=== PATIENT | female | born 1965 ===

== ENCOUNTER 2016-09-14 10:40 | Day surgery (SDC) | payer OTHER ==
--- NOTE | 2016-09-14 00:43 | GHP ---
[f rep st] PREOP HISTORY AND PHYSICAL DATE OF ADMISSION: 09/14/2016 The patient is slated for surgery on 09/14/2016, on the gynecology service. HISTORY OF PRESENT ILLNESS: The patient is a 50-year-old G3, P2, A1, who has had perimenopausal ble eding with thickened endometrium and has been advised to proceed with a hysteroscopy and D and C for thorough evaluation. The patient had an endometrial biopsy in May 2016, with findings suggestive of a benign polyp and inactive proliferative endometrium. The patient has tried progesterone for w ithdrawal bleed and did not have any response. The patient has done 2 rounds of progesterone with n o bleed. The patient was on oral contraceptives until December 2013. When she discontinued this, she was hav ing extremely heavy menstrual cycles with significant dysmenorrhea. The patient was initiated on a progesterone management daily in March 2014, at which time the bleeding stopped. The patient was also using an estrogen cream vaginally. The patient totally discontinued the progesterone in 2015, but has not had any withdrawal bleeding. She had 1 day of bleeding in February 2016, and a lso 3 episodes of spotting in April. An ultrasound was performed in April that revealed the uterus 9 x 5 x 6 cm with an endometrial thickness of 1 cm. The patient has a large posterior cervical fibr oid, 3 x 3 x 3 cm. There were also 2 small uterine fibroids, less than 2 cm. One lies posteriorly and one is fundally subserosal. Bilaterally, the ovaries had simple cysts less than 3 cm, in April. The patient has been advised as to the risks and benefits of a hysteroscopy and morcellation versu s D and C and has signed a consent form. PAST MEDICAL HISTORY: The patient has aortic insufficiency. She is seen by Dr. Orantes, who has h ad a stress test as well as an echocardiogram in 2016, that are stable. The patient has been advise d she no longer needs dental prophylactic antibiotics. The patient has an arrhythmia with frequent PVCs often daily. The patient has had hypothyroidism for approximately 10 years but discontinued he r medicines in December 2015, and was evaluated due to fatigue, and her TSH was elevated. The patie nt has restarted her thyroid medicine, and the symptoms have improved and her TSH is normalized. Hi story of insomnia for 18 years. The patient has been on multiple types of therapies and discontinue d her Lunesta also in December 2015. She has also restarted that because insomnia and acne have rec ently been quite a problem. History of MTHFR homozygous [id number]. Patient with history of depression, and she was on Wellbutrin for 8 years. She was off in December 2015. The patient recen tly had evaluation by Endocrinology and feels she has higher androgen levels leading to increased ac ne and insomnia. The patient has recently been started on finasteride 2.5 mg a day. 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 Chronically slow GI system and uses senna with magnesium. PAST SURGICAL HISTORY: Gallbladder removed in 2000, foot surgery in 1995, sinus surgery. PAST OBSTETRIC HISTORY: In 1980, a termination in 1st trimester. In 1997, a vaginal in [facility]. In 2000, a vaginal in [place]. The patient has 2 healthy boys. ALLERGIES: Only to tricyclics. CURRENT MEDICATIONS: Synthroid 50 mcg a day, iron supplement daily, Lunesta 3 mg to 6 mg at night, finasteride 2.5 mg a day, vitamin D supplement, and the Natural Cortisol Wing Coverer. SOCIAL HISTORY: The patient is an assistant county attorney, lives with her and her 2 boys. She is a former smoker. Denies any alcohol or drug use. PHYSICAL EXAMINATION: GENERAL: At the time of preop, the patient is a well-developed, well-nourish ed white female, in no physical distress. VITAL SIGNS: The patient's blood pressure is 98/62, weig ht 146 pounds, height 69 inches. Clinically afebrile. RESPIRATORY: The patient's lungs are clear to auscultation bilaterally. CARDIOVASCULAR: Regular rate and rhythm. ABDOMEN: Soft and nontende r. PELVIC: Exam was performed when the endometrial biopsy was done, and there was an obvious large 3 cm posterior cervical fibroid pushing into the endocervical canal. With gentle traction on the a nterior lip, the cervix was easily sounded to 10 cm. The uterus is mobile and nontender. No adnexa l masses. EXTREMITIES: Nontender with no edema. RECENT LABORATORY EVALUATION: In April, showed normal thyroid functions. In February, FSH was 21 an d estradiol 75. Vitamin D level was 34. Recent checks have not identified [place] syndrome. ASSESSMENT: Dysfunctional uterine bleeding with thickened endometrium in the perimenopause period. History of hyperandrogenism, chronic insomnia. Hypothyroidism. History of depression. PLAN: Will proceed with hysteroscopy and morcellation of the uterine lining with possible D and C. Risks and benefits have been discussed and consent form signed. The patient will receive preoperat guillermo antibiotics and proceed with hysteroscopy on 09/14/2016. /[id number]/MODL
[~2016-09-14 10:40] MED LIST: SILVER NITRATE APPLICATOR 1 APPL TP ONE
[2016-09-14] MEDS ORDERED: LR 1,000 ML IV ONE (11:13)
[2016-09-14] MEDS ORDERED: LIDOCAINE 1% 2 ML INJ ID PRN (11:13)
[2016-09-14] MEDS ORDERED: MIDAZOLAM 2 MG/2 ML VIAL IVP ONE (12:03)
--- NOTE | 2016-09-14 12:05 | PDANEPAE ---
ANE History of Present Illness metrorrhagia ANE Past Medical History - Cardiovascular History Hx Hypertension: No Hx Arrhythmias: Yes Hx Chest Pain: No Hx Coronary Artery / Peripheral Vascular Disease: No Hx CHF / Valvular Disease: No Hx Palpitations: No Cardiovascular History Comment: leaky heart valve from aortic insuff. "bit of irregular heartbeat". seen at [facility] - Pulmonary History Hx COPD: No Hx Asthma/Reactive Airway Disease: No Hx Recent Upper Respiratory Infection: No Hx Oxygen in Use at Home: No Hx Sleep Apnea: No Sleep Apnea Screening Result - Last Documented: Negative - Neurologic History Hx Cerebrovascular Accident: No Hx Seizures: No Hx Dementia: No - Endocrine History Hx Diabetes: No Endocrine History Comment: hypothyroidism - Renal History Hx Renal Disorders: No - Liver History Hx Hepatic Disorders: No - Neurological & Psychiatric Hx Hx Neurological and Psychiatric Disorders: No - Cancer History Hx Cancer: No - Congenital Disorder History Hx Congenital Disorders: No - GI History Hx Gastrointestinal Disorders: No - Other Health History Other Health History: none - Chronic Pain History Chronic Pain: No - Surgical History Prior Surgeries: left foot neuroma removed. wisdom teeth. sasha. deviated septum repair and sinus surgery ANE Review of Systems - Exercise capacity METS (RN): 4 METS ANE Patient History - Allergies Allergies/Adverse Reactions: No Known Allergies Allergy (Verified 07/20/16 14:15) - Home Medications Home Medications: Herbals/Supplements -Info Only 07/20/16 [Last Taken 09/07/16] IBUPROFEN 07/20/16 [Last Taken 09/07/16] Synthroid 07/20/16 [Last Taken 09/14/16 09:00] Finasteride 09/12/16 [Last Taken 09/14/16 09:00] Lunesta PRN 09/12/16 [Last Taken 09/13/16 23:30] - NPO status NPO Since - Liquids (Date): 09/13/16 NPO Since - Liquids (Time): 08:50 NPO Since - Solids (Date): 09/13/16 NPO Since - Solids (Time): 20:30 - Smoking Hx Smoking Status: Former smoker - Family Anes Hx Family Hx Anesthesia Complications: none ANE Labs/Vital Signs - Vital Signs Blood Pressure: 117/65 Heart Rate: 73 Respiratory Rate: 16 O2 Sat (%): 94 Height: 175.26 cm Weight: 66.678 kg ANE Physical Exam - Airway Neck exam: FROM Mallampati Score: Class 1 Mouth exam: normal dental/mouth exam - Pulmonary Pulmonary: no respiratory distress - Cardiovascular Cardiovascular: regular rate and rhythym - ASA Status ASA Status: I ANE Anesthesia Plan Anesthesia Plan: GA w LMA
[2016-09-14] MEDS ORDERED: PROPOFOL 200 MG/20 ML VIAL ONE ×2 (12:38)
[2016-09-14] MEDS ORDERED: fentaNYL 100 MCG/2 ML INJ ONE ×2 (12:38→13:41)
[2016-09-14] MEDS ORDERED: NALOXONE HCL 0.4 MG/ML INJ IVP PRN (12:46)
[2016-09-14] MEDS ORDERED: HYDROmorphONE/DILAUDID 1 MG/ML SYR IVP PRN (12:46)
[2016-09-14] MEDS ORDERED: ONDANSETRON 4 MG/2 ML VIAL ONE (13:17)
[2016-09-14] MEDS ORDERED: DEXAMETHASONE 4 MG/ML VIAL ONE (13:17)
[2016-09-14] MEDS ORDERED: KETOROLAC 30 MG/1 ML SDV ONE (13:17)
--- NOTE | 2016-09-14 13:37 | POSTOPPROG ---
Post Op Note Date of Operation: 09/14/16 Surgeon: Bekah Wilder Anesthesiologist: MD Berto Anesthesia: LMA Pre-op Diagnosis: Thickened endometrium, DUB Post-op Diagnosis: same Indication: 50 y/o with 10 mm endometrial lining with no w/d bleed with P4, E2 level75 Procedure: hysteroscopy with D&C Findings: large cervical fibroid - 3-4 cm on post lip, dilated easily to 7, thin lini Inf/Abcess present in the surg proc area at time of surgery?: No Depth: Organ Space EBL: Minimal Complications: none Specimen(s): endometrial currettings
[2016-09-14] MEDS: fentaNYL 100 MCG/2 ML INJ IVP PRN ×2 (13:42→14:10)
[2016-09-14 14:27] VITALS: RESP 13
[2016-09-14 15:55] VITALS: BP 128/66; PULSE 44; TEMP 97.9; O2SAT 16
== END 2016-09-14 14:54 | disposition home or self-care (01) ==
LOC: FSGY 10:40
PROVIDERS: ATTEND Obstetrics & Gynecology
PROC: 0UDB8ZX Extraction of Endometrium, Via Natural or Artificial Opening Endoscopic, Diagnostic (ICD-10-PCS; principal; 2016-09-14 12:00)
DX: N93.8 Other specified abnormal uterine and vaginal bleeding (principal); D25.9 Leiomyoma of uterus, unspecified; R93.8 Abnormal findings on diagnostic imaging of other specified body structures; I35.1 Nonrheumatic aortic (valve) insufficiency; E03.9 Hypothyroidism, unspecified; G47.00 Insomnia, unspecified; L70.9 Acne, unspecified; F32.9 Major depressive disorder, single episode, unspecified
CPT/HCPCS: J1100; J1885; J2250; J2405; J2704; J3010

== ENCOUNTER → 2016-12-22 | Outpatient (CLI) | payer OTHER | LOC: FIMAGING 09:39 | PROVIDERS: ATTEND Obstetrics & Gynecology | DX: Z12.31 Encounter for screening mammogram for malignant neoplasm of breast (principal) | CPT/HCPCS: G0202 ==

== ENCOUNTER → 2017-06-07 | Outpatient (CLI) | payer OTHER ==
--- NOTE | 2017-06-07 16:02 | CPEEG ---
[f rep st] ELECTROENCEPHALOGRAM DATE OF STUDY: 06/07/2017 INTERPRETATION: This 4-hour video EEG recording is normal. There were no potentially epileptogenic abnormalities present in the awake or sleep recordings. During the video EEG monitoring session, the patient did not have any clinical events. REPORT: This 4-hour video EEG contains 10 Hz alpha activity to the posterior head regions. The background activity was normal and symmetric. There was no abnormal activation at rest during photic stimulation or hyperventilation. The patient became drowsy and fell into sustained sleep during the study. There was no abnormal activation with drowsiness, sleep, or during times of arousal. The patient denied any clinical events during the video EEG monitoring session. /[id number]/MODL MTDD
== END ==
LOC: FCPNEURO 07:51
PROVIDERS: ATTEND Psychiatry & Neurology Neurology
DX: G47.00 Insomnia, unspecified (principal); F43.10 Post-traumatic stress disorder, unspecified

== ENCOUNTER → 2017-12-10 | Outpatient (CLI) | payer OTHER | LOC: FIMAGING 14:15 | PROVIDERS: ATTEND Obstetrics & Gynecology | DX: Z13.820 Encounter for screening for osteoporosis (principal); M85.89 Other specified disorders of bone density and structure, multiple sites ==

== ENCOUNTER → 2018-04-01 | Outpatient (CLI) | payer OTHER | LOC: FIMAGING 16:04 | PROVIDERS: ATTEND Obstetrics & Gynecology | DX: Z12.31 Encounter for screening mammogram for malignant neoplasm of breast (principal) ==

== ENCOUNTER → 2018-07-30 | Outpatient (CLI) | payer OTHER | LOC: BMCIMAGING 13:24 ==